=== PATIENT | male | born 1945 | race Caucasian/White ===

== ENCOUNTER 2025-01-30 08:47 | Outpatient (CLI) | payer MEDICARE, OTHER ==
[~2025-01-30] VITALS: Ht 167.6 cm; Wt 68.0 kg
[2025-01-30] MEDS: albuterol 2.5 MG/3 ML nebule NEB ONE (09:34)
[2025-01-30 09:37] VITALS: PULSE 76; RESP 16; O2SAT 96
[2025-01-30 09:49] VITALS: PULSE 72; RESP 16
--- NOTE | 2025-02-01 14:09 | PROCEDURE NOTE - Respiratory ---
Procedure Note-Respiratory Providers to CC Copies To 1: VALERIE MCKENZIE MD Procedure Name: This is a spirometry study dated January 30, 2025. The spirometry study was performed both before and after inhaled bronchodilator. Spirometry measurements: The forced vital capacity is moderately reduced. The FEV1 is severely reduced. The FEV1 ratio is also significantly reduced. All of the measured flow rates show substantial reduction. After inhaled bronchodilator the FEV1 and the flow rate measurements show some improvement. Conclusion: This study shows severe abnormality. 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 The patient does show some reversibility with inhaled bronchodilator. This patient will likely show clinical improvement with regular daily use of inhaled bronchodilator. Complete abstinence from all types of smoking is recommended for this patient. The reduction in the forced vital capacity raises the possibility of a restrictive ventilatory defect. This patient gives history of long-term exposure to inhaled toxins. This raises concern regarding the possibility of interstitial lung disease. Clinical correlation is suggested. We have no previous studies for comparison. Close pulmonary follow-up is recommended. MANI PAUL MD Feb 01, 2025 14:09
== END 2025-01-30 23:59 | disposition home or self-care (01) ==
LOC: RT 08:47
PROVIDERS: ATTEND Internal Medicine
DX: R06.09 Other forms of dyspnea (principal)
CPT/HCPCS: 94060; 94760; A6402; A6449

== ENCOUNTER 2025-02-14 08:19 | Outpatient (CLI) | payer MEDICARE, OTHER ==
--- NOTE | 2025-02-14 11:23 | RADIOLOGY REPORT ---
EXAM: MR MRI UPPER EXTREMITY RIGHT HISTORY: PAIN IN RIGHT ELBOW TECHNIQUE: Multiplanar, multisequence MRI of the right elbow was performed without contrast. COMPARISON: None FINDINGS: Joint: There is no elbow joint effusion. There is no synovitis or loose body. Bones and articular cartilage: Bone marrow signal is homogenous and unremarkable. There is radiocapit ellar joint space narrowing with near hbwi-ce-alet contact and subchondral cysts in the capitellum. T he alignment is within normal limits. Ligaments and tendons: The ulnar collateral ligament is intact. The radial collateral ligament, later al ulnar collateral ligament (LUCL) and annular ligament are intact. The common flexor tendon and com mon extensor tendon origins are intact. The biceps, brachialis, triceps tendons are intact. Nerves: The ulnar nerve is normal in signal intensity and caliber and normally located in the cubital tunnel. The medial and radial nerves are intact. Muscles: Regional musculature is preserved in bulk and signal characteristics. IMPRESSION: 1. 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 2. No soft tissue abnormality or acute bony injury.
== END 2025-02-14 23:59 | disposition home or self-care (01) ==
LOC: MRI02 08:19
PROVIDERS: ATTEND Pediatrics Sports Medicine
DX: M19.021 Primary osteoarthritis, right elbow (principal); M25.521 Pain in right elbow; M25.421 Effusion, right elbow; M25.821 Other specified joint disorders, right elbow; M85.68 Other cyst of bone, other site
CPT/HCPCS: 73221